=== PATIENT | female | born 1980 | race Two or more races ===

== ENCOUNTER 2021-10-02 04:15 | Inpatient (IN) | payer OTHER ==
[2021-09-27 11:36] VITALS: BMI 34.7
[2021-10-02] MEDS ORDERED: MIDAZOLAM HCL 2 MG/2 ML SINGLE DOSE VIAL ONE ×2 (11:45)
[2021-10-02] MEDS ORDERED: PROPOFOL 20 ML ONE (11:45)
[2021-10-02] MEDS ORDERED: FENTANYL CITRATE/PF 50 MCG/ML VIAL ONE ×6 (11:45→16:33)
[2021-10-02] MEDS ORDERED: ceFAZolin SODIUM 1 GM VIAL IVPB ONE (12:02)
[2021-10-02] MEDS ORDERED: LIDOCAINE HCL 2% JELLY (5 ML/TUBE) ONE (12:31)
[2021-10-02] MEDS ORDERED: ceFAZolin SODIUM 1 GM VIAL ONE ×2 (12:31→18:39)
[2021-10-02] MEDS ORDERED: ONDANSETRON 4 MG/2 ML VIAL ONE (12:31)
[2021-10-02] MEDS ORDERED: LIDOCAINE HCL/PF 2% SDV 5ML VIAL ONE (12:31)
[2021-10-02] MEDS ORDERED: DEXAMETHASONE SOD PHOSPHATE 4 MG/1 ML VIAL ONE (12:31)
[2021-10-02] MEDS ORDERED: ROCURONIUM BROMIDE 50 MG/5 ML SYRINGE ONE (13:40)
[2021-10-02] MEDS ORDERED: ONDANSETRON 4 MG/2 ML VIAL IVPUSH PRN (14:25)
[2021-10-02] MEDS ORDERED: ALPRAZolam 1 MG TABLET PO ONE (14:28)
[2021-10-02] MEDS ORDERED: ACETAMINOPHEN 500 MG TABLET (FP) PO PRN (14:28)
[2021-10-02] MEDS ORDERED: ONDANSETRON 4 MG/2 ML VIAL IVPB PRN (14:28)
[2021-10-02] MEDS ORDERED: ERGOCALCIFEROL PO SCH (14:30)
[2021-10-02] MEDS ORDERED: LACTATED RINGERS SOLUTION 1,000 ML IV SCH (14:30)
[2021-10-02] MEDS ORDERED: MEPERIDINE HCL CARPU-JECT 50 MG/1 ML DISP.SYRIN IVPUSH PRN ×2 (14:45→15:38)
[2021-10-02] MEDS ORDERED: NEOSTIGMINE METHYLSULFATE 0.5 MG/1 ML - 10 ML MDV ONE (14:47)
[2021-10-02] MEDS ORDERED: ACETAMINOPHEN 325 MG TABLET (FP) PO PRN ×2 (16:00)
[2021-10-02] MEDS ORDERED: oxyCODONE HCL 5 MG TABLET PO PRN ×2 (16:00)
[2021-10-02] MEDS ORDERED: HYDROmorphone HCl 2 MG/ML VIAL IVPB PRN (17:37)
[2021-10-02] MEDS: LACTATED RINGERS SOLUTION 1,000 ML/1,000 ML INFUS.BAG IV SCH ×2 (17:44→19:42)
[2021-10-02] MEDS ORDERED: DEXTROSE 5%-WATER - 50 ML IVPB ONE (18:40)
[2021-10-02] MEDS: CEFAZOLIN 1 GM in DEXTROSE 5%-WATER - 50 ML IVPB SCH (18:42)
[2021-10-03] MEDS ORDERED: ceFAZolin SODIUM 1 GM VIAL ONE ×2 (01:54→09:51)
[2021-10-03] MEDS ORDERED: DEXTROSE 5%-WATER - 50 ML IVPB ONE ×2 (01:55→09:52)
[2021-10-03] MEDS: CEFAZOLIN 1 GM in DEXTROSE 5%-WATER - 50 ML IVPB SCH ×2 (02:00→09:56)
[2021-10-03] MEDS ORDERED: PATIENT'S OWN MEDICATION (NON-FORMULARY) (Omeprazole Magnesium [Omeprazole Magnesium] 20 M PO SCH (10:00)
[2021-10-03] MEDS ORDERED: LORATADINE 10 MG TABLET PO SCH (10:00)
[2021-10-03] MEDS ORDERED: PANTOPRAZOLE 40 MG TABLET PO SCH (10:00)
[2021-10-03 16:19] VITALS: BP 131/67; PULSE 89; TEMP 98.2
== END 2021-10-03 16:33 | disposition home health service (06) | DRG 362 ==
LOC: J2C 04:15 → J8W 18:34
PROVIDERS: ADMIT Surgery; ATTEND Plastic Surgery
PROC: 0HTT0ZZ Resection of Right Breast, Open Approach (ICD-10-PCS; principal; 2021-10-02 10:00)
PROC: 07B50ZZ Excision of Right Axillary Lymphatic, Open Approach (ICD-10-PCS; 2021-10-02 10:00)
PROC: 07B50ZX Excision of Right Axillary Lymphatic, Open Approach, Diagnostic (ICD-10-PCS; 2021-10-02 10:00)
PROC: 0HR Skin and Breast, Replacement (ICD-10-PCS; 2021-10-02 10:00)
DX: C50.911 Malignant neoplasm of unspecified site of right female breast (principal); C77.3 Secondary and unspecified malignant neoplasm of axilla and upper limb lymph nodes
CPT/HCPCS: 19281; 36415; 71046-TC-FY; 76098-TC-FY; 78195-TC; 80053; 81003; 81025; 84703; 85025; 85610; 86850; 86900; 86901; 88307-TC; 88309-TC; 88331-TC; 88332; 94760; A9541; C9803-CS; Q9968; U0003; U0005

== ENCOUNTER → 2021-10-30 | Day surgery (SDC) | payer OTHER ==
[2021-10-29 17:35] VITALS: BMI 34.7
[~2021-10-30] MED LIST: DEXAMETHASONE SOD PHOSPHATE 4 MG/1 ML VIAL ONE; KETOROLAC TROMETHAMINE 30 MG/1 ML VIAL ONE; LACTATED RINGERS SOLUTION 1,000 ML IV SCH; MIDAZOLAM HCL 2 MG/2 ML SINGLE DOSE VIAL ONE; ONDANSETRON 4 MG/2 ML VIAL IVPUSH PRN; PROMETHAZINE HCL 25 MG/1 ML VIAL IVPUSH PRN; PROPOFOL 20 ML ONE; ceFAZolin SODIUM 1 GM VIAL IVPB ONE; ceFAZolin SODIUM 1 GM VIAL ONE; oxyCODONE HCL 5 MG TABLET PO PRN
[2021-10-30 17:53] VITALS: BP 101/54; PULSE 73; TEMP 98.1
== END | disposition home or self-care (01) ==
LOC: JASU-SURG 12:30
PROVIDERS: ATTEND Plastic Surgery
PROC: 0JB60ZZ Excision of Chest Subcutaneous Tissue and Fascia, Open Approach (ICD-10-PCS; 2021-10-30)
PROC: 0JB60ZZ Excision of Chest Subcutaneous Tissue and Fascia, Open Approach (ICD-10-PCS; principal; 2021-10-30 14:00)
DX: S21.001A Unspecified open wound of right breast, initial encounter (principal); L76.82 Other postprocedural complications of skin and subcutaneous tissue; Z85.3 Personal history of malignant neoplasm of breast; Y83.8 Other surgical procedures as the cause of abnormal reaction of the patient, or of later complication, without mention of misadventure at the time of the procedure; X58.XXXA Exposure to other specified factors, initial encounter; Y92.9 Unspecified place or not applicable
CPT/HCPCS: 81025; 88304-TC; 94760